=== PATIENT | female | born 1965 | race Caucasian/White ===

== ENCOUNTER 2016-09-18 11:33 | Outpatient (CLI) | payer SELFPAY ==
--- NOTE | 2016-09-18 16:09 | CT ---
CT OF THE BRAIN WITHOUT CONTRAST 09/18/16 Comparison is made with a prior CT dated 10/18/14. There have been no important interval changes. The ventricles are normal in size with no shift. Ther e is no sign of acute stroke, edema, mass or bleeding. If clinical symptoms strongly suggest a strok e, MRI would be more sensitive at picking up early lesions. IMPRESSION: No acute intracranial findings. POS: HOME
== END 2016-09-18 11:34 | disposition home or self-care (01) ==
LOC: BURCT 11:33
PROVIDERS: ATTEND Family Medicine
DX: R47.01 Aphasia (principal); M62.81 Muscle weakness (generalized)
CPT/HCPCS: 70450

== ENCOUNTER 2016-12-24 12:33 | Emergency (ER) | payer SELFPAY ==
[2016-12-24 13:06] LABS: Base Excess 0.1 mEq/L (-2 - +2)
[2016-12-24] MEDS ORDERED: Insulin Regular 300 UNITS/3 ML VIAL ONE (13:16)
[2016-12-24 13:17] LABS: #Basophils 0.1 thou/uL (0.0-0.2); #Eosinphils 0.2 thou/uL (0.0-0.7); #Lymphocytes 2.7 thou/uL (1.20-3.40); #Monocytes 0.3 thou/uL (0.11-0.59); #Neutrophils 4.7 thou/uL (1.40-6.50); %Basophils 0.8 % (0.0-1.0); %Eosinophils 2.9 % (0.0-10.0); %Lymphocytes 33.5 % (21.0-51.0); %Monocytes 3.9 % (0.0-10.0); Hemoglobin 14.9 g/dL (12.0-16.0); Mean Corpuscular HGB CONC 33.1 g/dL (32.0-36.0); Mean Corpuscular Hemoglobin 31.5 pg (27.0-31.0); Mean Platelet Volume 9.7 fL (7.4-10.4); Platelet Count 170 thou/uL (130-400); RBC Distribution Width 12.2 % (11.5-14.5); Red Blood Cell (RBC) Count 4.72 mill/uL (4.20-5.40)
[2016-12-24 13:18] LABS: CKMB 2.6 ng/mL (0-6.6); Troponin I 0.027 ng/mL (< 0.028)
[2016-12-24 13:23] LABS: Bilirubin Negative (Negative); Blood, Urine Negative (Negative); Clarity Clear (Clear); Glucose, Urine (Dipstick) 500 mg/dL (Negative); Leukocyte Negative (Negative); Nitrite Negative (Negative); Protein, Urine (Dipstick) Negative (Neg-Trace); Urobilinogen 0.2 mg/dL (0.2-1.0); pH, Urine 5.5 (5.0-9.0)
[2016-12-24 13:27] LABS: ALT (SGPT) 54 U/L (0-55); AST (SGOT) 40 U/L (5-34); Albumin 3.4 g/dL (3.5-5.0); Alkaline Phosphatase 96 U/L (40-150); Anion Gap 15 mmol/L (10-20); BUN (Urea Nitrogen) 15 mg/dL (7.0-18.7); Bilirubin, Total 0.3 mg/dL (0.2-1.2); Calc. Creatinine Clearance 0 mL/min (70-130); Calcium 8.4 mg/dL (7.8-10.44); Carbon Dioxide 18 mmol/L (22-29); Chloride 106 mmol/L (98-107); Estimated GFR-MDRD 64; Globulin 3.5 g/dL (2.4-3.5); Glucose 436 mg/dL (70-105); Lipase 27 U/L (8-78); Potassium 4.1 mmol/L (3.5-5.1); Protein, Total 6.9 g/dL (6.0-8.3); Sodium 135 mmol/L (136-145)
== END 2016-12-24 15:26 | disposition home or self-care (01) ==
LOC: BURERS 12:33
DX: E11.65 Type 2 diabetes mellitus with hyperglycemia (principal); E66.9 Obesity, unspecified; I10 Essential (primary) hypertension; Z87.891 Personal history of nicotine dependence; Z79.84 Long term (current) use of oral hypoglycemic drugs; Z79.899 Other long term (current) drug therapy
CPT/HCPCS: 36416; 80053; 81003; 82010; 82553; 82805; 83690; 84484; 85025; 94760; 96361; 96374; 96376; 36415-59; J1815

== ENCOUNTER 2017-04-17 10:49 | Emergency (ER) | payer MEDICAID, SELFPAY ==
[2017-04-17] MEDS ORDERED: Benzonatate 100 MG CAP ONE (11:06)
[2017-04-17 11:18] LABS: #Basophils 0.1 thou/uL (0.0-0.2); #Lymphocytes 1.7 thou/uL (1.20-3.40); #Monocytes 0.9 thou/uL (0.11-0.59); #Neutrophils 4.9 thou/uL (1.40-6.50); %Basophils 0.9 % (0.0-1.0); %Eosinophils 0.5 % (0.0-10.0); %Lymphocytes 22.3 % (21.0-51.0); %Monocytes 11.7 % (0.0-10.0); %Neutrophils 64.7 % (42.0-75.0); Mean Corpuscular Hemoglobin 32.3 pg (27.0-31.0); Mean Corpuscular Volume 94.9 fl (81.0-99.0); Mean Platelet Volume 9.8 fL (7.4-10.4); Platelet Count 173 thou/uL (130-400); RBC Distribution Width 12.1 % (11.5-14.5); Red Blood Cell (RBC) Count 4.63 mill/uL (4.20-5.40); White Blood Cell (WBC) Count 7.6 thou/uL (4.8-10.8)
[2017-04-17 11:32] LABS: ALT (SGPT) 54 U/L (8-55); AST (SGOT) 51 U/L (5-34); Albumin 3.6 g/dL (3.5-5.0); Alkaline Phosphatase 66 U/L (40-150); Anion Gap 14 mmol/L (10-20); BUN (Urea Nitrogen) 9 mg/dL (7.0-18.7); Bilirubin, Total 0.4 mg/dL (0.2-1.2); Calc. Creatinine Clearance 0 mL/min (70-130); Calcium 8.9 mg/dL (7.8-10.44); Carbon Dioxide 23 mmol/L (22-29); Chloride 103 mmol/L (98-107); Estimated GFR-MDRD 78; Globulin 3.7 g/dL (2.4-3.5); Glucose 202 mg/dL (70-105); Potassium 3.7 mmol/L (3.5-5.1); Protein, Total 7.3 g/dL (6.0-8.3); Sodium 136 mmol/L (136-145)
[2017-04-17 11:39] LABS: CKMB 4.1 ng/mL (0-6.6); Troponin I 0.025 ng/mL (< 0.028)
[2017-04-17] MEDS ORDERED: Sodium Chloride 0.9% 0 ML ONE (11:52)
[2017-04-17] MEDS ORDERED: Piperacillin/Tazobactam 3.375 GM VIAL ONE (11:52)
[2017-04-17] MEDS ORDERED: Azithromycin 250 MG TAB ONE (11:54)
--- NOTE | 2017-04-17 21:37 | RAD ---
CHEST TWO VIEWS 04/17/17 Comparison is made with the 04/19/14 study. The heart is borderline/upper normal in size but unchanged over the interval. There is no vascular c ongestion, edema, or pleural effusion. There is some prominence of the basilar lung markings bilaterally, and in the retrocardiac region. T his was present perhaps to a limited degree in 2013 but seems a little more prominent today on the l ateral view. Thus a minimal basilar infiltrate or fibrotic change is possible. The upper lobes are c lear. The trachea is midline. IMPRESSION: Prominence of basilar markings. This could be chronic fibrotic change, bronchitis, or even early inf ection. POS: HOME
== END 2017-04-17 12:05 | disposition home or self-care (01) ==
LOC: BURERS 10:49
DX: J20.9 Acute bronchitis, unspecified (principal); E11.9 Type 2 diabetes mellitus without complications; I10 Essential (primary) hypertension; M06.9 Rheumatoid arthritis, unspecified; G47.30 Sleep apnea, unspecified; J45.909 Unspecified asthma, uncomplicated; G51.0 Bell's palsy; E66.9 Obesity, unspecified; Z87.891 Personal history of nicotine dependence; Z79.891 Long term (current) use of opiate analgesic; Z79.84 Long term (current) use of oral hypoglycemic drugs; Z79.1 Long term (current) use of non-steroidal anti-inflammatories (NSAID)
CPT/HCPCS: 71020; 80053; 82553; 83880; 84484; 85025; 93005; 94640; J2543; J7050; J7620

== ENCOUNTER 2017-04-19 12:05 | Emergency (ER) | payer MEDICAID, SELFPAY ==
[2017-04-19 12:41] LABS: #Eosinphils 0.3 thou/uL (0.0-0.7); #Lymphocytes 2.4 thou/uL (1.20-3.40); #Monocytes 0.6 thou/uL (0.11-0.59); #Neutrophils 3.1 thou/uL (1.40-6.50); %Basophils 0.7 % (0.0-1.0); %Eosinophils 4.3 % (0.0-10.0); %Lymphocytes 37.5 % (21.0-51.0); %Neutrophils 48.5 % (42.0-75.0); Hemoglobin 14.5 g/dL (12.0-16.0); Mean Corpuscular HGB CONC 33.6 g/dL (32.0-36.0); Mean Corpuscular Volume 95.4 fl (81.0-99.0); Platelet Count 177 thou/uL (130-400); Red Blood Cell (RBC) Count 4.53 mill/uL (4.20-5.40); White Blood Cell (WBC) Count 6.5 thou/uL (4.8-10.8)
[2017-04-19] MEDS ORDERED: methylPREDNISolone Sod Succ/PF 125 MG/2 ML VIAL ONE (12:51)
[2017-04-19 12:55] LABS: ALT (SGPT) 55 U/L (8-55); AST (SGOT) 54 U/L (5-34); Albumin 3.7 g/dL (3.5-5.0); Alkaline Phosphatase 76 U/L (40-150); Anion Gap 16 mmol/L (10-20); BUN (Urea Nitrogen) 15 mg/dL (7.0-18.7); Bilirubin, Total 0.3 mg/dL (0.2-1.2); Calc. Creatinine Clearance 0 mL/min (70-130); Calcium 9.1 mg/dL (7.8-10.44); Carbon Dioxide 24 mmol/L (22-29); Chloride 104 mmol/L (98-107); Estimated GFR-MDRD 65; Globulin 3.8 g/dL (2.4-3.5); Glucose 178 mg/dL (70-105); Potassium 3.8 mmol/L (3.5-5.1); Protein, Total 7.5 g/dL (6.0-8.3); Sodium 140 mmol/L (136-145)
[2017-04-19 12:59] LABS: CKMB 5.4 ng/mL (0-6.6); Troponin I 0.029 ng/mL (< 0.028)
--- NOTE | 2017-04-19 13:27 | RAD ---
2 VIEWS CHEST: Date: 04/19/17 HISTORY: Dyspnea. FINDINGS: PA and lateral views of chest obtained. Comparison made to previous exam from 04/17/17. Two views of chest demonstrate the lungs to be well aerated. No evidence of acute intrathoracic dise ase seen. No evidence of effusions, pneumonia, or pneumothorax seen. IMPRESSION: Unremarkable 2 views of chest. POS: [facility]
== END 2017-04-19 14:53 | disposition short-term general hospital (02) ==
LOC: BURERS 12:05
DX: J45.902 Unspecified asthma with status asthmaticus (principal); R79.89 Other specified abnormal findings of blood chemistry; I10 Essential (primary) hypertension; E11.9 Type 2 diabetes mellitus without complications; M06.9 Rheumatoid arthritis, unspecified; Z87.891 Personal history of nicotine dependence; Z86.73 Personal history of transient ischemic attack (TIA), and cerebral infarction without residual deficits; Z79.84 Long term (current) use of oral hypoglycemic drugs; Z79.891 Long term (current) use of opiate analgesic; Z79.899 Other long term (current) drug therapy; Z79.2 Long term (current) use of antibiotics
CPT/HCPCS: 36415; 71020; 80053; 82553; 83880; 84484; 85025; 87040; 93005; 94640; 94760; 96365; 96375; J1956; J2930; J7620

== ENCOUNTER 2017-09-09 07:33 | Outpatient (CLI) | payer OTHER ==
[2017-09-09 12:04] LABS: Hemoglobin 14.2 g/dL (12.0-16.0); Mean Corpuscular HGB CONC 33.5 g/dL (32.0-36.0); Mean Corpuscular Hemoglobin 31.8 pg (27.0-31.0); Mean Corpuscular Volume 94.7 fl (81.0-99.0); Mean Platelet Volume 8.8 fL (7.4-10.4); Platelet Count 195 thou/uL (130-400); RBC Distribution Width 11.7 % (11.5-14.5); Red Blood Cell (RBC) Count 4.45 mill/uL (4.20-5.40); White Blood Cell (WBC) Count 7.2 thou/uL (4.8-10.8)
[2017-09-09 12:24] LABS: ALT (SGPT) 51 U/L (8-55); AST (SGOT) 46 U/L (5-34); Alkaline Phosphatase 83 U/L (40-150); Anion Gap 13 mmol/L (10-20); BUN (Urea Nitrogen) 9 mg/dL (7.0-18.7); Bilirubin, Total 0.5 mg/dL (0.2-1.2); Calc. Creatinine Clearance 0 mL/min (70-130); Calcium 9.1 mg/dL (7.8-10.44); Carbon Dioxide 24 mmol/L (22-29); Cardiac Risk 5.5 (Less than 4.5); Chloride 101 mmol/L (98-107); Cholesterol 176 mg/dl (< 200 Desired); Estimated GFR-MDRD 82; Globulin 3.2 g/dL (2.4-3.5); Glucose 229 mg/dL (70-105); HDL Cholesterol 32 mg/dL (>60 Neg Risk); LDL Cholesterol, Calculated 111 mg/dL; Protein, Total 7.2 g/dL (6.0-8.3); Sodium 134 mmol/L (136-145); Triglycerides 166 mg/dL (Less than 150)
[2017-09-09 12:36] LABS: Creatinine, Urine 103.47 mg/dL (47-110); Microalbumin Urine 1.7 mg/dL (0.5-50.0); Microalbumin/Creat Ratio 16.4 mg/g (Less than 30)
--- NOTE | 2017-09-09 18:45 | RAD ---
LEFT ELBOW FOUR VIEWS: FINDINGS: No fracture, dislocation, or joint effusion was seen. The lateral humeral condyle appears normal. IMPRESSION: No acute finding. POS: HOME
== END 2017-09-09 07:34 | disposition home or self-care (01) ==
LOC: BURRAD 07:33
PROVIDERS: ATTEND Family Medicine
DX: E11.9 Type 2 diabetes mellitus without complications (principal); M77.12 Lateral epicondylitis, left elbow; I10 Essential (primary) hypertension
CPT/HCPCS: 36415; 80053; 80061; 82043; 84443; 85027

== ENCOUNTER 2017-12-18 07:35 | Emergency (ER) | payer OTHER, SELFPAY ==
--- NOTE | 2017-12-18 12:24 | RAD ---
LEFT FIFTH TOE: Date: 12/18/17 No major fracture or joint abnormality is seen. On one view, there is suggestion of a little irregula rity around the terminal tuft of the distal phalanx. It does not conclusively rule-in or rule-out a m inimal cortical injury here. IMPRESSION: Probably negative, but see above. POS: [facility]
== END 2017-12-18 08:19 | disposition home or self-care (01) ==
LOC: BURERS 07:35
DX: S92.532A Displaced fracture of distal phalanx of left lesser toe(s), initial encounter for closed fracture (principal); E11.9 Type 2 diabetes mellitus without complications; I10 Essential (primary) hypertension; G47.30 Sleep apnea, unspecified; Z86.73 Personal history of transient ischemic attack (TIA), and cerebral infarction without residual deficits; J45.909 Unspecified asthma, uncomplicated; G51.0 Bell's palsy; Z87.891 Personal history of nicotine dependence; Z79.84 Long term (current) use of oral hypoglycemic drugs; Z79.899 Other long term (current) drug therapy; W22.8XXA Striking against or struck by other objects, initial encounter

== ENCOUNTER 2018-09-28 11:13 | Emergency (ER) | payer OTHER, SELFPAY ==
--- NOTE | 2018-09-28 15:47 | RAD ---
CHEST TWO VIEWS: Date: 09-28-18 Comparison: 04-19-17 FINDINGS: The heart size is stable. There is no vascular congestion, edema, or pleural effusion. No lobar infil trate was seen. While the markings behind the heart are perhaps mildly prominent, I am not sure they are really much different than they were before. I cannot confirm an acute infiltrate at this time. D egenerative changes are seen in the spine. IMPRESSION: No definite acute change. Follow up filming may be necessary depending upon the patient's progression . POS: HOME
== END 2018-09-28 12:18 | disposition home or self-care (01) ==
LOC: BURERS 11:13
DX: R05 Cough (principal); E11.9 Type 2 diabetes mellitus without complications; I10 Essential (primary) hypertension; G47.30 Sleep apnea, unspecified; Z86.73 Personal history of transient ischemic attack (TIA), and cerebral infarction without residual deficits; G51.0 Bell's palsy; F17.210 Nicotine dependence, cigarettes, uncomplicated; Z79.84 Long term (current) use of oral hypoglycemic drugs; Z79.899 Other long term (current) drug therapy; Z79.51 Long term (current) use of inhaled steroids
CPT/HCPCS: 36416; 71046

== ENCOUNTER 2018-12-26 12:35 | Emergency (ER) | payer SELFPAY ==
[2018-12-26 13:07] LABS: INR-International Normal Ratio 1.1; Prothrombin Time 13.8 SEC (12.0-14.7)
[2018-12-26 13:14] LABS: Mean Corpuscular Hemoglobin 30.7 pg (27.0-31.0); Platelet Count 220 thou/uL (130-400); Red Blood Cell (RBC) Count 4.89 mill/uL (4.20-5.40); White Blood Cell (WBC) Count 14.8 thou/uL (4.8-10.8)
[2018-12-26 13:15] LABS: ALT (SGPT) 22 U/L (8-55); AST (SGOT) 16 U/L (5-34); Albumin 4.2 g/dL (3.5-5.0); Alkaline Phosphatase 73 U/L (40-150); Anion Gap 18 mmol/L (10-20); BUN (Urea Nitrogen) 11 mg/dL (9.8-20.1); Bilirubin, Total 0.5 mg/dL (0.2-1.2); Calc. Creatinine Clearance 0 mL/min (70-130); Calcium 9.6 mg/dL (7.8-10.44); Carbon Dioxide 21 mmol/L (22-29); Chloride 107 mmol/L (98-107); Estimated GFR-MDRD 72; Globulin 3.6 g/dL (2.4-3.5); Glucose 94 mg/dL (70-105); Potassium 3.7 mmol/L (3.5-5.1); Protein, Total 7.8 g/dL (6.0-8.3); Sodium 142 mmol/L (136-145)
[2018-12-26 13:17] LABS: Band 10 % (5-11); Lymphocytes 11 % (21-51); MDiff Complete? YES; Monocytes 4 % (0-10); Neutrophil 74 % (42-75); Reactive Lymphocytes 1 % (0-10)
[2018-12-26 13:23] LABS: Clarity Cloudy (Clear)
[2018-12-26] MEDS ORDERED: Acetaminophen 500 MG TAB ONE (13:23)
[2018-12-26 13:24] LABS: Bilirubin Small (Negative); Blood, Urine Trace (Negative); Glucose, Urine (Dipstick) Negative (Negative); Leukocyte Negative (Negative); Nitrite Negative (Negative); Protein, Urine (Dipstick) 30 mg/dL (Neg-Trace); Specific Gravity, Urine 1.025 (1.005-1.030); pH, Urine 5.5 (5.0-9.0)
[2018-12-26 13:27] LABS: Bacteria/HPF 2+ HPF (None Seen); Other Microscopic Description MOCOUSE THREADS; RBC/HPF 0-3 HPF (0-3); WBC/HPF 0-3 HPF (0-3)
--- NOTE | 2018-12-26 14:05 | CT ---
CT BRAIN WITHOUT CONTRAST: Date: 12/26/18 Comparison made with the 09/18/16 study. FINDINGS: The ventricles are normal in size. No intracranial bleeding, mass, or sign of stroke found. There is no edema. The calvarium is normal in appearance. The visible paranasal sinuses and mastoid air cells are clear. IMPRESSION: No acute intracranial findings. POS: HOME
--- NOTE | 2018-12-26 14:13 | RAD ---
PORTABLE CHEST: Date: 12/26/18 An AP portable film at 1316 hours is compared with the 09/28/18 study. FINDINGS: The heart size is stable, being borderline to upper normal in size. There is no congestion, effusion, or focal infiltrate. The trachea is midline. IMPRESSION: No acute findings. POS: HOME
== END 2018-12-26 14:01 | disposition left against medical advice (07) ==
LOC: BURERS 12:35
DX: R55 Syncope and collapse (principal); E11.9 Type 2 diabetes mellitus without complications; I10 Essential (primary) hypertension; J45.909 Unspecified asthma, uncomplicated; G51.0 Bell's palsy; F17.210 Nicotine dependence, cigarettes, uncomplicated; Z79.84 Long term (current) use of oral hypoglycemic drugs; Z79.899 Other long term (current) drug therapy; Z79.51 Long term (current) use of inhaled steroids
CPT/HCPCS: 36416; 51701; 70450; 71045; 80053; 81003; 81015; 84484; 85025; 85610; 85730; 87040; 87086; 87804; 93005; 96360; A4353

== ENCOUNTER 2019-02-14 08:34 | Emergency (ER) | payer SELFPAY ==
[2019-02-14 09:08] LABS: #Basophils 0.1 thou/uL (0.0-0.2); #Eosinphils 0.3 thou/uL (0.0-0.7); #Lymphocytes 2.4 thou/uL (1.20-3.40); #Monocytes 0.7 thou/uL (0.11-0.59); #Neutrophils 9.7 thou/uL (1.40-6.50); %Basophils 0.5 % (0.0-1.0); %Eosinophils 1.9 % (0.0-10.0); %Monocytes 5.7 % (0.0-10.0); %Neutrophils 73.8 % (42.0-75.0); Hemoglobin 14.8 g/dL (12.0-16.0); Mean Corpuscular HGB CONC 31.7 g/dL (32.0-36.0); Mean Corpuscular Hemoglobin 29.9 pg (27.0-31.0); Mean Corpuscular Volume 94.2 fL (78.0-98.0); Mean Platelet Volume 9.3 fL (7.4-10.4); Platelet Count 227 thou/uL (130-400); RBC Distribution Width 12.4 % (11.5-14.5); Red Blood Cell (RBC) Count 4.97 mill/uL (4.20-5.40); White Blood Cell (WBC) Count 13.1 thou/uL (4.8-10.8)
[2019-02-14] MEDS ORDERED: Albuterol Sulfate 2.5 mg/3 ml Neb ONE (09:09)
[2019-02-14] MEDS ORDERED: Magnesium Sulfate 2 GM/100 ML BAG ONE (09:09)
[2019-02-14 09:31] LABS: Sodium 140 mmol/L (136-145)
[2019-02-14 09:32] LABS: Carbon Dioxide 25 mmol/L (22-29); Chloride 104 mmol/L (98-107); Potassium 3.7 mmol/L (3.5-5.1)
[2019-02-14 09:33] LABS: Anion Gap 15 mmol/L (10-20); BUN (Urea Nitrogen) 8 mg/dL (9.8-20.1); Bilirubin, Total 0.5 mg/dL (0.2-1.2); Calc. Creatinine Clearance 0 mL/min (70-130); Calcium 9.3 mg/dL (7.8-10.44); Estimated GFR-MDRD 79; Glucose 212 mg/dL (70-105)
[2019-02-14 09:34] LABS: ALT (SGPT) 15 U/L (8-55); AST (SGOT) 14 U/L (5-34); Albumin 3.9 g/dL (3.5-5.0); Alkaline Phosphatase 80 U/L (40-150); Globulin 3.9 g/dL (2.4-3.5); Protein, Total 7.8 g/dL (6.0-8.3)
[2019-02-14] MEDS ORDERED: predniSONE 20 MG TAB ONE (10:17)
[2019-02-14] MEDS ORDERED: Azithromycin 250 MG TAB ONE (10:17)
--- NOTE | 2019-02-14 12:27 | RAD ---
AP PORTABLE CHEST: 02/14/2019 0906 HOURS COMPARISON: 12/26/2018 FINDINGS: The heart is mildly enlarged but unchanged. There is no congestive change, pleural effusion, or foca l pulmonary infiltrate. The lungs are clear. The trachea is midline. IMPRESSION: Mild cardiomegaly with little change since the prior study. POS: HOME
== END 2019-02-14 11:11 | disposition home or self-care (01) ==
LOC: BURERS 08:34
DX: J20.9 Acute bronchitis, unspecified (principal); E11.9 Type 2 diabetes mellitus without complications; I10 Essential (primary) hypertension; G47.30 Sleep apnea, unspecified; Z86.73 Personal history of transient ischemic attack (TIA), and cerebral infarction without residual deficits; G51.0 Bell's palsy; F17.210 Nicotine dependence, cigarettes, uncomplicated; Z79.4 Long term (current) use of insulin; Z79.899 Other long term (current) drug therapy
CPT/HCPCS: 36415; 71045; 80053; 83605; 85025; 87040; 87149; 94640; 94760; J1956; J3475; J7512; J7611; J7620

== ENCOUNTER 2019-09-18 17:38 | Emergency (ER) | payer MEDICARE, MEDICAID ==
[2019-09-18] MEDS ORDERED: Ibuprofen 200 MG TAB ONE (17:57)
[2019-09-18 18:43] LABS: Hemoglobin 15.5 g/dL (12.0-16.0); Mean Corpuscular HGB CONC 32.3 g/dL (32.0-36.0); Mean Corpuscular Hemoglobin 30.4 pg (27.0-31.0); Mean Corpuscular Volume 94.1 fL (78.0-98.0); Platelet Count 182 thou/uL (130-400); RBC Distribution Width 12.2 % (11.5-14.5); Red Blood Cell (RBC) Count 5.11 mill/uL (4.20-5.40); White Blood Cell (WBC) Count 7.3 thou/uL (4.8-10.8)
[2019-09-18 18:59] LABS: ALT (SGPT) 31 U/L (8-55); AST (SGOT) 23 U/L (5-34); Albumin 3.9 g/dL (3.5-5.0); Alkaline Phosphatase 81 U/L (40-110); Anion Gap 16 mmol/L (10-20); BUN (Urea Nitrogen) 9 mg/dL (9.8-20.1); Bilirubin, Total 0.4 mg/dL (0.2-1.2); Calc. Creatinine Clearance 0 mL/min (70-130); Calcium 8.7 mg/dL (7.8-10.44); Carbon Dioxide 20 mmol/L (22-29); Chloride 105 mmol/L (98-107); Estimated GFR-MDRD 71; Globulin 3.3 g/dL (2.4-3.5); Glucose 167 mg/dL (70-105); Potassium 3.7 mmol/L (3.5-5.1); Protein, Total 7.2 g/dL (6.0-8.3); Sodium 137 mmol/L (136-145)
[2019-09-18 19:10] LABS: Eosinophils 2 % (0-10); Lymphocytes 10 % (21-51); MDiff Complete? YES; Monocytes 7 % (0-10); Neutrophil 79 % (42-75); Platelet Morphology Comment Appears Adequate; RBC Morphology Normal; Reactive Lymphocytes 2 % (0-10)
[2019-09-18] MEDS ORDERED: Oseltamivir 75 MG CAP ONE (19:26)
--- NOTE | 2019-09-18 23:04 | RAD ---
PORTABLE CHEST: Date: 09-18-2019 An AP portable film at 1756 is compared with a 08-02-19 study. FINDINGS: The heart is normal in size and the lungs are clear. There is no sign of pneumonia or pleural effusio n. The mediastinum appears normal. IMPRESSION: No acute thoracic findings. POS: HOME
== END 2019-09-18 19:31 | disposition home or self-care (01) ==
LOC: BURERS 17:38
DX: J11.1 Influenza due to unidentified influenza virus with other respiratory manifestations (principal); E11.9 Type 2 diabetes mellitus without complications; I10 Essential (primary) hypertension; M06.9 Rheumatoid arthritis, unspecified; J45.909 Unspecified asthma, uncomplicated; M79.7 Fibromyalgia; G51.0 Bell's palsy; G47.30 Sleep apnea, unspecified; F17.210 Nicotine dependence, cigarettes, uncomplicated; Z85.42 Personal history of malignant neoplasm of other parts of uterus; Z86.73 Personal history of transient ischemic attack (TIA), and cerebral infarction without residual deficits; Z79.4 Long term (current) use of insulin; Z79.899 Other long term (current) drug therapy; Z79.51 Long term (current) use of inhaled steroids
CPT/HCPCS: 71045; 80053; 83605; 85025; 87040; 87804; 96360

== ENCOUNTER 2020-07-10 11:26 | Emergency (ER) | payer MEDICARE, MEDICAID | END 2020-07-10 12:15 | disposition home or self-care (01) | LOC: BURERS 11:26 | DX: J32.9 Chronic sinusitis, unspecified (principal); E11.9 Type 2 diabetes mellitus without complications; I10 Essential (primary) hypertension; M06.9 Rheumatoid arthritis, unspecified; G47.30 Sleep apnea, unspecified; J45.909 Unspecified asthma, uncomplicated; M79.7 Fibromyalgia; F32.9 Major depressive disorder, single episode, unspecified; F17.210 Nicotine dependence, cigarettes, uncomplicated; Z86.73 Personal history of transient ischemic attack (TIA), and cerebral infarction without residual deficits; Z79.4 Long term (current) use of insulin | CPT/HCPCS: 99283 ==

== ENCOUNTER 2021-01-02 10:15 | Emergency (ER) | payer MEDICARE, MEDICAID ==
[2021-01-02 21:11] LABS: SARS-CoV-2 PCR by NAA Not Detected (NotDetected)
== END 2021-01-02 13:15 | disposition home or self-care (01) ==
LOC: BURERS 10:15
DX: B34.9 Viral infection, unspecified (principal); I10 Essential (primary) hypertension; E11.9 Type 2 diabetes mellitus without complications; M06.9 Rheumatoid arthritis, unspecified; G47.30 Sleep apnea, unspecified; J45.909 Unspecified asthma, uncomplicated; F17.210 Nicotine dependence, cigarettes, uncomplicated; G51.0 Bell's palsy; M79.7 Fibromyalgia; Z86.73 Personal history of transient ischemic attack (TIA), and cerebral infarction without residual deficits; Z20.822 Contact with and (suspected) exposure to COVID-19
CPT/HCPCS: 71045; 87804 ×2; 99283; U0003; U0005; 87635

== ENCOUNTER 2021-03-11 01:17 | Emergency (ER) | payer MEDICARE, MEDICAID ==
[2021-03-11] MEDS ORDERED: diphenhydrAMINE 50 MG/ML VIAL ONE (01:46)
[2021-03-11] MEDS ORDERED: Metoclopramide HCl 10 MG/2 ML VIAL ONE (01:46)
[2021-03-11] MEDS ORDERED: Ketorolac Tromethamine 30 MG/ML VIAL ONE (01:46)
== END 2021-03-11 02:25 | disposition home or self-care (01) ==
LOC: BURERS 01:19
DX: G43.909 Migraine, unspecified, not intractable, without status migrainosus (principal); I10 Essential (primary) hypertension; E11.9 Type 2 diabetes mellitus without complications; Z86.73 Personal history of transient ischemic attack (TIA), and cerebral infarction without residual deficits; J45.909 Unspecified asthma, uncomplicated; F17.210 Nicotine dependence, cigarettes, uncomplicated
CPT/HCPCS: 96365; 96375; J1200; J1885; J2765

== ENCOUNTER 2021-10-17 09:57 | Emergency (ER) | payer MEDICAID, MEDICARE ==
[2021-10-17 22:55] LABS: SARS-CoV-2 PCR by NAA DETECTED (NotDetected)
== END 2021-10-17 10:50 | disposition home or self-care (01) ==
LOC: BURERS 09:57
DX: U07.1 COVID-19 (principal); J01.90 Acute sinusitis, unspecified; M06.9 Rheumatoid arthritis, unspecified; E11.9 Type 2 diabetes mellitus without complications; G47.30 Sleep apnea, unspecified; J45.909 Unspecified asthma, uncomplicated; F17.210 Nicotine dependence, cigarettes, uncomplicated; Z86.73 Personal history of transient ischemic attack (TIA), and cerebral infarction without residual deficits; Z85.42 Personal history of malignant neoplasm of other parts of uterus; Z86.69 Personal history of other diseases of the nervous system and sense organs
CPT/HCPCS: 99284; U0003; U0005

== ENCOUNTER 2022-02-15 10:36 | Emergency (ER) | payer MEDICARE | END 2022-02-15 11:36 | disposition home or self-care (01) | LOC: BURERS 10:36 | DX: K12.0 Recurrent oral aphthae (principal); K11.7 Disturbances of salivary secretion; I10 Essential (primary) hypertension; E11.9 Type 2 diabetes mellitus without complications; M10.9 Gout, unspecified; G47.30 Sleep apnea, unspecified; M06.9 Rheumatoid arthritis, unspecified; F17.210 Nicotine dependence, cigarettes, uncomplicated | CPT/HCPCS: 99282 ==

== ENCOUNTER 2022-04-10 07:38 | Emergency (ER) | payer MEDICARE ==
[2022-04-10] MEDS ORDERED: Fluorescein Opthalmic Strip ONE (08:02)
[2022-04-10] MEDS ORDERED: Tetracaine 0.5% PF 4 ML BOT ONE (08:02)
== END 2022-04-10 08:53 | disposition home or self-care (01) ==
LOC: BURERS 07:38
DX: H16.001 Unspecified corneal ulcer, right eye (principal); I10 Essential (primary) hypertension; G51.0 Bell's palsy; Z86.73 Personal history of transient ischemic attack (TIA), and cerebral infarction without residual deficits; F17.210 Nicotine dependence, cigarettes, uncomplicated
CPT/HCPCS: 99283

== ENCOUNTER 2022-11-04 10:43 | Emergency (ER) | payer MEDICARE ==
[2022-11-04] MEDS ORDERED: Ipratropium/Albuterol 3 ML NEB ONE (11:58)
[2022-11-04] MEDS ORDERED: HYDROcodone/Acetaminophen 5/325 mg Tablet ONE (12:50)
[2022-11-04] MEDS ORDERED: predniSONE 20 MG TAB ONE (13:22)
[2022-11-04] MEDS ORDERED: Doxycycline 100 MG CAP ONE (13:22)
== END 2022-11-04 13:30 | disposition home or self-care (01) ==
LOC: BURERS 10:43
DX: J22 Unspecified acute lower respiratory infection (principal); Z20.822 Contact with and (suspected) exposure to COVID-19; F17.210 Nicotine dependence, cigarettes, uncomplicated
CPT/HCPCS: 71045; 87804 ×2; 99284; U0003; U0005; J7512; J7620

== ENCOUNTER 2024-01-29 10:39 | Emergency (ER) | payer MEDICARE, OTHER ==
[2024-01-29] MEDS ORDERED: Morphine 4 MG/ML VIAL ONE (11:09)
== END 2024-01-29 12:26 | disposition home or self-care (01) ==
LOC: BURERS 10:39
DX: S29.012A Strain of muscle and tendon of back wall of thorax, initial encounter (principal); I10 Essential (primary) hypertension; E11.9 Type 2 diabetes mellitus without complications; F17.210 Nicotine dependence, cigarettes, uncomplicated; W10.2XXA Fall (on)(from) incline, initial encounter; Y93.01 Activity, walking, marching and hiking; Y92.009 Unspecified place in unspecified non-institutional (private) residence as the place of occurrence of the external cause; Z79.4 Long term (current) use of insulin; Z79.84 Long term (current) use of oral hypoglycemic drugs; Z79.899 Other long term (current) drug therapy
CPT/HCPCS: 72072; 96372; J2270

== ENCOUNTER 2024-10-28 23:34 | Emergency (ER) | payer MEDICARE ==
[2024-10-28] MEDS ORDERED: predniSONE 20 MG TAB ONE (23:52)
[2024-10-29] MEDS ORDERED: HYDROmorphone 0.5 MG/0.5 ML SYRINGE ONE ×2 (00:12→01:34)
== END 2024-10-29 03:37 | disposition home or self-care (01) ==
LOC: BURERS 23:34
DX: M54.6 Pain in thoracic spine (principal); M54.50 Low back pain, unspecified; I10 Essential (primary) hypertension; E11.9 Type 2 diabetes mellitus without complications; M79.7 Fibromyalgia; J45.909 Unspecified asthma, uncomplicated; F17.210 Nicotine dependence, cigarettes, uncomplicated; Z86.73 Personal history of transient ischemic attack (TIA), and cerebral infarction without residual deficits; Z79.4 Long term (current) use of insulin; Z79.84 Long term (current) use of oral hypoglycemic drugs; Z79.51 Long term (current) use of inhaled steroids; Z79.899 Other long term (current) drug therapy
CPT/HCPCS: 96374; 96376; J1171; J7512